=== PATIENT | male | born 1965 | race Caucasian/White ===

== ENCOUNTER 2022-02-11 14:20 | Outpatient (CLI) | payer OTHER, SELFPAY ==
[2022-02-11 12:40] LABS: Albumin* 4.7 g/dL (3.3-5.0); Chloride* 104 mmol/L (96-114)
[2022-02-11 12:41] LABS: Potassium* 4.7 mmol/L (3.6-5.1); Sodium* 137 mmol/L (135-149)
[2022-02-11 12:43] LABS: Aspartate Amino Transferase* 29 U/L (12-35); Bilirubin Total* 0.6 mg/dL (0.1-1.5); Blood Urea Nitrogen* 13 mg/dL (7-30); Carbon Dioxide* 26 mmol/L (20-32); Cholesterol* 225 mg/dL (90-199); Creatinine* 0.7 mg/dL (0.5-1.5); Estimated Glomerular Filt Rate 107 ml/min; Total Protein* 7.1 g/dL (6.0-8.3)
[2022-02-11 12:44] LABS: Alanine Aminotransferase* 19 U/L (4-50); Alkaline Phosphatase* 72 U/L (40-150); Calcium* 9.6 mg/dL (8.4-10.6); Glucose* 114 mg/dL (60-115); HDL Cholesterol* 57 mg/dL (>=40); LDL Cholesterol Calculated 143 mg/dL (<100); Triglycerides* 124 mg/dL (40-149)
== END 2022-02-11 14:21 | disposition home or self-care (01) ==
PROVIDERS: PCP Family Medicine; Visit Provider Family Medicine
DX: E78.5 Hyperlipidemia, unspecified (principal); E21.3 Hyperparathyroidism, unspecified; E83.52 Hypercalcemia; E21.0 Primary hyperparathyroidism
CPT/HCPCS: 80053; 80061; 82310; 83970

== ENCOUNTER 2023-05-26 19:51 | Outpatient (CLI) | payer OTHER, SELFPAY ==
--- NOTE | 2023-06-02 09:56 | W.PM.SLEEP ---
Sleep Study Details Details Interpreting Provider: Mohit Date of Sleep Study: 05/26/23 Sleep Study Details: STUDY TYPE:? Home unattended ? BMI:? 22.1 ORDERING PROVIDER:? Mohit INDICATION:? Concerns about sleep apnea ? SLEEP SUMMARY:? 443.5 minutes recorded RESPIRATORY SUMMARY:? AHI 13.1 (CMS), AHI 19.1 using rule 1A/3%. Apnea worse in the supine and left lateral positions Low oxygen 82 9.4% of study oxygen less than 90% Snoring 4% PERIODIC LIMB MOVEMENTS OF SLEEP:? Not recorded during home study CARDIAC:? Range 53-110, mean 83.5 beats per minute IMPRESSION:? Mild to moderate obstructive sleep apnea RECOMMENDATION: Treatment options include CPAP AutoSet, dental appliance and/or airway expansion surgery.
== END 2023-05-26 19:52 | disposition home or self-care (01) ==
LOC: SLEEP 19:52
PROVIDERS: PCP Family Medicine; Visit Provider Otolaryngology
DX: G47.33 Obstructive sleep apnea (adult) (pediatric) (principal)
CPT/HCPCS: 95806

== ENCOUNTER 2023-12-18 07:44 | Outpatient (CLI) | payer OTHER, SELFPAY ==
--- OUTSIDE RECORDS SUMMARY | 2023-12-22 18:06 | XMS_ITS | Clinical Summary ---
Author Organization [facility] Address [address] [place] [id number] Care Team Providers Care Seismograph Supervisor Name Role Phone Igor Solorio MD Primary Care Provider [phone] Allergies Active Allergy Reactions Criticality Noted Date Comments Dust Mites Other (See Comments) Low 07/09/2021 RUNNY NOSE AND ITCHY EYES Pollen Extract Other (See Comments) Low 07/09/2021 (CULTIVATED OAT POLLEN) RUNNY NOSE AND ITCHY EYES Medications Medication Sig Dispensed Refills Start Date End Date Status Vitamin D, Cholecalciferol, 10 MCG (400 UNIT) TABS Take 1 tablet by mouth daily Active senna-docusate (SENOKOT-S/PERICOLACE ) 8.6-50 MG tabletIndications:Acu te post-operative pain Take 1 tablet by mouth 2 times daily 15 tablet 07/10/2021 Active Active Problems Problem Noted Date Diagnosed Date Hyperparathyroidism (H24) 02/28/2021 Social History Tobacco Use Types Packs/Day Years Used Date Smoking Tobacco: Never Smokeless Tobacco: Never Alcohol Use Standard Drinks/Week Comments Yes 0 (1 standard drink = 0.6 oz pur e alcohol) 6 DRINKS / WEEK Adolescent Education Answer Date Record ed Getting School Help Needed Not on file 01/16 Sex and Gender Information Value Date Recorded Sex Assigned at Male 06/11/2021 2:49 PM MICROFILM OPERATOR Gender Identity Male 06/11/2021 2:49 PM MICROFILM OPERATOR Sexual Orientation Straight 06/11/2021 2: 49 PM MICROFILM OPERATOR Last Filed Vital Signs Vital Sign Reading Time Taken Comments Blood Pressure 148/85 07/10/2021 3:57 PM CDT Pulse 70 07/10/2021 3:57 PM CDT Temperature 37 ??C (98.6 ??F) 07/10/2021 3:57 PM CDT Respiratory Rate 14 07/10/2021 3:57 PM CDT Oxygen Saturation 96% 07/10/2021 3:57 PM CDT Inhaled Oxygen Concentration - - Weight 67.2 kg (148 lb 3.2 oz) 07/10/2021 9:29 A M CDT Height 177.8 cm (5' 10) 07/10/2021 9:29 AM CDT Body Mass Index 21.26 07/10/2021 9:29 AM CDT Plan of Treatment Health Maintenance Due Date Last Done Comments ADVANCE CARE PLANNING 1964 ANNUAL REVIEW OF HM ORDERS 1964 CT COLONOGRAPHY 1964 FIT 1964 FLEX SIG 1964 GLUCOSE 1964 YEARLY PREVENTIVE VISIT 1964 sDNA (Cologuard) 1964 COLONOSCOPY 1974 COLORECTAL CANCER SCREENING 1974 HIV SCREENING 08/26/1979 HEPATITIS C SCREENING 1982 HEPATITIS B IMMUNIZATION (1 of 3 - 19+ 3-dose series) 08/26/1983 LIPID 2004 ZOSTER IMMUNIZATION (2 of 2) 07/16/2021 05/21/2021 COVID-19 Vaccine ( - 2022- season) 2022 02/07/2021, 06/05/2020, 05/15/2020 PHQ-2 (once per calendar year) 2023 INFLUENZA VACCINE (#1) 2023 , 02/06/2021, 02/21/2020, Additional history exists DTAP/TDAP/TD IMMUNIZATION (3 - Td or Tdap) 02/07/2025 02/07/2015, 06/12/2010 HPV IMMUNIZATION Aged Out No longer e ligible based on patient's age to complete this topic MENINGITIS IMMUNIZATION Aged Out No l onger eligible based on patient's age to complete this topic Pneumococcal Vaccine: Pediatrics (0 to 5 Years) and At-Risk Patients (6 to 64 Years) Aged Out No longer eligible based on patient's age to complete this topic RSV MONOCLONAL ANTIBODY Aged Out No l onger eligible based on patient's age to complete this topic Care Teams Seismograph Supervisor Relationship Specialty Start Date End Date Igor Solorio MD PCP - General Family Medicine 06/18/21
--- OUTSIDE RECORDS SUMMARY | 2023-12-22 18:06 | XMS_ITS | Referral Summary ---
Author Organization [facility] Address [address] [place] [id number] Care Team Providers Care Behavioral Health Professional Name Role Phone Igor Solorio MD Primary Care Provider [phone] Allergies Active Allergy Reactions Criticality Noted Date [...] Sex Assigned at Male 06/11/2021 2:49 PM RADIO HOST Gender Identity Male 06/11/2021 2:49 PM RADIO HOST Sexual Orientation Straight 06/11/2021 2: 49 PM RADIO HOST Last Filed Vital Signs Vital Sign Reading [...] 07/10/2021 9:29 AM CDT Plan of Treatment Not on file Care Teams Behavioral Health Professional Relationship Specialty Start Date End Date Igor Solorio MD PCP - General Family Medicine 06/18/21
== END 2023-12-18 07:45 | disposition home or self-care (01) ==
LOC: NFLDREF 12-22 18:05
PROVIDERS: PCP Family Medicine; Referring Provider Family Medicine; Visit Provider Family Medicine
DX: E78.5 Hyperlipidemia, unspecified (principal); E21.0 Primary hyperparathyroidism; Z12.5 Encounter for screening for malignant neoplasm of prostate; N52.9 Male erectile dysfunction, unspecified; R03.0 Elevated blood-pressure reading, without diagnosis of hypertension; E83.52 Hypercalcemia
CPT/HCPCS: 80053; 80061; 84443; G0103

== ENCOUNTER 2025-01-26 08:05 | Outpatient (CLI) | payer OTHER, SELFPAY | END 2025-01-26 08:06 | disposition home or self-care (01) | LOC: NFLDREF 02-09 00:49 | PROVIDERS: PCP Family Medicine; Referring Provider Family Medicine; Visit Provider Family Medicine | DX: E78.5 Hyperlipidemia, unspecified (principal); Z12.5 Encounter for screening for malignant neoplasm of prostate | CPT/HCPCS: 80053; 80061; G0103 ==